=== PATIENT | female | born 1990 | race Caucasian/White ===

== ENCOUNTER 2017-07-07 11:34 | Emergency (ER) | payer OTHER ==
[2017-07-07 12:02] VITALS: BP 113/80
--- NOTE | 2017-07-07 12:29 | EDM.PDOC ---
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 WKS PREG/BLEEDING Time Seen by Provider: 07/07/17 12:10 Source of Information: Reports: Patient, Family (), Provider (Dr. Sinclair), RN Notes Reviewed History Limitations: Reports: No Limitations - History of Present Illness INITIAL COMMENTS - FREE TEXT/NARRATIVE: The patient states that she and her are trying to get . Her LMP was 05/27/2017. She was planning on taking hormonal treatment, therefore had a baseline quantitative hCG checked on 06/23/2017. It was slightly elevated at 17. It was up to 52 on 06/25/2017, and 201 on 07/02/2017. It dropped down to 176 yesterday, 07/06/2017, and a pelvic ultrasound yesterday did not find any tissue, anywhere. The patient states that she developed severe cramps and low back ache 3 days ago , lasting only about one hour, with mild cramps since then. This morning she had a small amount of vaginal bleeding when she wiped. The patient is . Her Conservation Enforcement Officer is Dr. Sinclair. She states that she tried to reach him this morning, without success, therefore came to the ED. The patient's PCP is Malika Merlos. 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: : 2 Para: 1 Musculoskeletal History: Reports: Fracture (right wrist) - Past Surgical History HEENT Surgical History: Reports: Oral Surgery ([place] teeth extraction), Tonsillectomy Neurological Surgical History: Reports: Other (See Below) (Left ankle surgery) Social & Family History - Family History Family Medical History: Noncontributory - Tobacco Use Smoking Status *Q: Never Smoker Second Hand Smoke Exposure: No - Caffeine Use Caffeine Use: Reports: None - Alcohol Use Alcohol Use History: No Days Per Week of Alcohol Use: 0 Number of Drinks Per Day: 0 Total Drinks Per Week: 0 - Recreational Drug Use Recreational Drug Use: No - Living Situation & Occupation Living situation: Reports: , with Spouse, with Family (Daughter) Occupation: Unemployed ED ROS GENERAL - Review of Systems Review Of Systems: See Below Constitutional: Reports: No Symptoms HEENT: Reports: No Symptoms Respiratory: Reports: Cough Cardiovascular: Reports: No Symptoms Endocrine: Reports: No Symptoms GI/Abdominal: Reports: No Symptoms : Reports: No Symptoms Musculoskeletal: Reports: No Symptoms Skin: Reports: No Symptoms Neurological: Reports: No Symptoms Psychiatric: Reports: No Symptoms Hematologic/Lymphatic: Reports: No Symptoms Immunologic: Reports: No Symptoms ED EXAM - Physical Exam Exam: See Below Exam Limited By: No Limitations General Appearance: Alert, WD/WN, No Apparent Distress Eye Exam: Bilateral Eye: Normal Inspection Ears: Normal External Exam, Hearing Grossly Normal Nose: Normal Inspection, No Blood Throat/Mouth: Normal Inspection, Normal Lips, Normal Voice, No Airway Compromise Head: Atraumatic, Normocephalic Neck: Normal Inspection, Full Range of Motion Respiratory/Chest: No Respiratory Distress, Lungs Clear, Normal Breath Sounds, No Accessory Muscle Use Cardiovascular: Normal Peripheral Pulses, Regular Rate, Rhythm, No Gallop, No JVD, No Murmur, No Rub GI/Abdominal Exam: Normal Bowel Sounds, Soft, Non-Tender, No Organomegaly, No Distention, No Abnormal Bruit, No Mass Rectal Exam: Deferred Back Exam: Normal Inspection, Full Range of Motion, NT Extremities: Normal Inspection, Normal Range of Motion, No Pedal Edema, Normal Capillary Refill Neurological: Alert, Oriented, Normal Cognition, No Motor/Sensory Deficits Psychiatric: Normal Affect Skin Exam: Warm, Dry, Intact, Normal Color, No Rash Lymphatic: No Adenopathy Course - Vital Signs Last Recorded V/S: Last Vital Signs Temp 36.5 C 07/07/17 12:02 Pulse 98 07/07/17 12:02 Resp 16 07/07/17 12:02 BP 113/80 07/07/17 12:02 Pulse Ox 98 07/07/17 12:02 - Orders/Labs/Meds Labs: Laboratory Tests 07/07/17 Range/Units 12:35 HCG, Quant 95.0 mIU/mL - Re-Assessments/Exams Free Text/Narrative Re-Assessment/Exam: 07/07/17 12:[address] Sinclair at 12:23. He agreed that the patient appears to be experiencing a spontaneous . He recommended we repeat a quantitative hCG, then discharge her home. Since he performed a pelvic examination on her yesterday, he recommend I not repeat one today. He stated that she was nontender to palpation of her abdomen and pelvis on examination yesterday, as she is today. He recommended she take Tylenol for cramping, not ibuprofen. The patient is already scheduled for repeat quantitative hCG this coming , . 07/07/17 13:23 The quantitative hCG has returned at 95, down from 176 yesterday. Clinically, the patient is experiencing a spontaneous . I advised her that she should expect some cramping and bleeding for the next 5-7 days, not significantly different from a regular menstrual period. As above, Dr. Sinclair has recommended she take Tylenol, not ibuprofen, and he advised that she obtain a previously scheduled quantitative hCG on , 07/09/2017. Departure - Departure Time of Disposition: 13:24 Disposition: Home, Self-Care 01 Condition: Good Clinical Impression: Spontaneous - Discharge Information Instructions: Miscarriage Referrals: Zev Sinclair MD [Physician] - Forms: ED Department Discharge Additional Instructions: You were seen in the emergency room for pelvic cramps and a small amount of vaginal bleeding. Workup in the ER included a quantitative hCG, which returned at 95, down from 176 yesterday and 201 on 07/02/2017. Your history and quantitative hCG indicate that you are experiencing a miscarriage. You should expect to have some cramping and bleeding over the next 5-7 days, not unlike a regular menstrual period. Dr. Sinclair recommends that you take hccz-lem-cagbihy Tylenol for her discomfort, not ibuprofen. He recommends that you obtain a previously scheduled quantitative hCG this coming , 07/09/2017. If any other problems, please do not hesitate to return to the ER.
== END 2017-07-07 13:35 | disposition home or self-care (01) ==
LOC: JD.ED 11:34
DX: O03.9 Complete or unspecified spontaneous abortion without complication (principal); Z98.890 Other specified postprocedural states; Z79.899 Other long term (current) drug therapy
CPT/HCPCS: 36415; 84702; 99283; 99284

== ENCOUNTER 2018-08-09 06:53 | Inpatient (IN) | payer OTHER ==
--- NOTE | 2018-08-09 07:28 | PCM.HP ---
H&P History of Present Illness - General Date of Service: 08/09/18 Admit Problem/Dx: Induction Source of Information: Patient, Old Records History Limitations: Reports: No Limitations - History of Present Illness Initial Comments - Free Text/Narative: "Barb" is a 27 YO white female who presents today at 39-3/7 wks gestation (by LMP, confirmed by [facility] 01/11/18) for an elective induction. On exam , patient was found to be 2 cm, 70% effaced, at -3 station, cervix posterior and firm. Denies blurred vision, VANESSA, LE edema, N/V, chest pain, cough, or dyspnea. Patient has a h/o depression and anxiety, EPDS completed 07/22, no suicidal/ homicidal thoughts or ideations. Patient blood type is A NEG, and due to partner's blood type also being Rh negative has denied Rhogam throughout her pregnancies. GBS NEG. Rubella immune, RPR/HBsAg/HIV nonreactive. Tdap given 05/24/18. Denies h/o MRSA or travel to Zika- infested areas. Patient has expressed interest in epidural for pain management. Plans to breastfeed. 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 scoliosis Psychiatric History: Reports: Anxiety, Depression - Past Surgical History HEENT Surgical History: Reports: Oral Surgery ([place] teeth extraction), Tonsillectomy Neurological Surgical History: Reports: Other (See Below) (Left ankle surgery) Musculoskeletal Surgical History: Reports: Other (See Below) Other Musculoskeletal Surgeries/Procedures:: L ankle repair per pt Social & Family History - Family History Family Medical History: Noncontributory Cardiac: Reports: Hypertension (Mother, Father, MGM) - Caffeine Use Caffeine Use: Reports: None - Living Situation & Occupation Living situation: Reports: , with Spouse, with Family (Daughter) Occupation: Unemployed H&P Review of Systems - Review of Systems: Review Of Systems: ROS reveals no pertinent complaints other than HPI. Exam - Exam Exam: See Below - Exam General: Alert, Oriented, 4 HEENT: Conjunctiva Clear, Mucosa Moist & [place], Nares Patent, Pupils Equal Lungs: Clear to Auscultation, Normal Respiratory Effort Cardiovascular: Regular Rate, Regular Rhythm Extremities: Normal Inspection, Normal Range of Motion, Non-Tender, No Pedal Edema, Normal Capillary Refill Skin: Warm, Dry, Intact Neuro Extensive - Mental Status: Alert, Oriented x3, Normal Mood/Affect, Normal Cognition Psychiatric: Alert, Normal Affect, Normal Mood - Problem List (1) with 39 completed weeks gestation SNOMED Code(s): 03491376 ICD Code: Z3A.39 - 39 WEEKS GESTATION OF Status: Acute Current Visit: Yes (2) Rh negative status during SNOMED Code(s): 183642709 ICD Code: O09.899 - SUPERVISION OF OTHER HIGH RISK PREGNANCIES, UNSP TRIMESTER; Z67.91 - UNSPECIFIED BLOOD TYPE, RH NEGATIVE Status: Acute Current Visit: Yes Problem List Initiated/Reviewed/Updated: Yes Assessment/Plan Comment:: ASSESSMENT Patient appears in good health on exam, with no current complaints. 1. 39-3/7 weeks gestation 2. Elective induction 3. Patient plans to breastfeed PLAN 1. Continue with induction 2. Support decision to breastfeed
[2018-08-09] MEDS ORDERED: Sodium Chloride 0.9% 10 ML Syringe FLUSH PRN (07:33)
[2018-08-09] MEDS ORDERED: Nalbuphine 20 MG/ML 1 ML Syringe IVPUSH PRN (07:33)
[2018-08-09] MEDS ORDERED: Ondansetron 4 MG/2 ML SDV IVPUSH PRN (07:33)
[2018-08-09] MEDS ORDERED: Oxytocin/Lactated Ringers 10 UNIT/1,000 ML BAG IV SCH (07:45)
[2018-08-09] MEDS: Lactated Ringers 1,000 ML IV SCH ×5 (08:40→16:15)
[2018-08-09] MEDS ORDERED: ePHEDrine 50 MG/ML SDV IVPUSH PRN (09:28)
[2018-08-09] MEDS ORDERED: fentaNYL 100 MCG/2 ML SDV EPIDUR PRN (09:28)
[2018-08-09] MEDS ORDERED: diphenhydrAMINE 50 MG/ML SDV IVPUSH PRN (09:28)
[2018-08-09] MEDS ORDERED: Bupivacaine/fentaNYL/NS 100 ML Bag EPIDUR SCH (09:30)
--- NOTE | 2018-08-09 10:54 | PCM.PREANE ---
Preanesthetic Assessment - Procedure Proposed Procedure: dami - Anesthesia/Transfusion/Family Hx Anesthesia History: Prior Anesthesia Without Reaction Family History of Anesthesia Reaction: No Transfusion History: No Prior Transfusion(s) - Review of Systems General: No Symptoms Pulmonary: No Symptoms Cardiovascular: No Symptoms Gastrointestinal: No Symptoms Neurological: No Symptoms Other: Reports: Depression, Anxiety - Physical Assessment O2 Sat by Pulse Oximetry: 98 Respiratory Rate: 18 Vital Signs: Last Vital Signs Temp 97.6 F 08/09/18 08:57 Pulse 84 08/09/18 08:57 Resp 18 08/09/18 08:57 BP 118/71 08/09/18 08:57 Pulse Ox 98 08/09/18 08:57 Height: 5 ft 3 in Weight: 79.152 kg ASA Class: 2 Mental Status: Alert & Oriented x3 Airway Class: Mallampati = 1 Dentition: Reports: Normal Dentition Thyro-Mental Finger Breadths: 3 Mouth Opening Finger Breadths: 3 ROM/Head Extension: Full Lungs: Clear to Auscultation, Normal Respiratory Effort Cardiovascular: Regular Rate, Regular Rhythm - Lab Values: Laboratory Last Values WBC 6.78 K/mm3 (3.98-10.04) 08/09/18 08:15 RBC 3.74 M/mm3 (3.98-5.22) L 08/09/18 08:15 Hgb 12.4 gm/L (11.2-15.7) 08/09/18 08:15 Hct 36.8 % (34.1-44.9) 08/09/18 08:15 MCV 98.4 fl (79.4-94.8) H 08/09/18 08:15 MCH 33.2 pg (25.6-32.2) H 08/09/18 08:15 MCHC 33.7 g/dl (32.2-35.5) 08/09/18 08:15 RDW Std Deviation 47.8 fL (36.4-46.3) H 08/09/18 08:15 Plt Count 198 K/mm3 (182-369) 08/09/18 08:15 MPV 9.5 fl (9.4-12.3) 08/09/18 08:15 Neut % (Auto) 54.8 % (34.0-71.1) 08/09/18 08:15 Lymph % (Auto) 27.0 % (19.3-51.7) 08/09/18 08:15 Curry % (Auto) 16.2 % (4.7-12.5) H 08/09/18 08:15 Eos % (Auto) 1.5 (0.7-5.8) 08/09/18 08:15 Baso % (Auto) 0.1 % (0.1-1.2) 08/09/18 08:15 Neut # (Auto) 3.71 K/mm3 (1.56-6.13) 08/09/18 08:15 Lymph # (Auto) 1.83 K/mm3 (1.18-3.74) 08/09/18 08:15 Curry # (Auto) 1.10 K/mm3 (0.24-0.36) H 08/09/18 08:15 Eos # (Auto) 0.10 K/mm3 (0.04-0.36) 08/09/18 08:15 Baso # (Auto) 0.01 K/mm3 (0.01-0.08) 08/09/18 08:15 Manual Slide Review Normal smear 08/09/18 08:15 RPR Non-reactive (NONREACTIVE) 08/09/18 08:15 - Allergies Allergies/Adverse Reactions: Allergies Allergy/AdvReac Type Severity Reaction Status Date / Time No Known Allergies Allergy Verified 08/09/18 08:31 - Blood Blood Available: No - Acknowledgements Anesthesia Type Planned: Epidural Pt an Appropriate Candidate for the Planned Anesthesia: Yes Alternatives and Risks of Anesthesia Discussed w Pt/Guardian: Yes Pt/Guardian Understands and Agrees with Anesthesia Plan: Yes PreAnesthesia Questionnaire HEENT History: Reports: None Cardiovascular History: Reports: None Respiratory History: Reports: Other (See Below) Other Respiratory History: 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 plus years Gastrointestinal History: Reports: GERD (with preg- occasional without preg) Genitourinary History: Reports: UTI, Recurrent 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 scoliosis Psychiatric History: Reports: Anxiety, Depression Hematologic History: Reports: Anemia Oncologic (Cancer) History: Reports: None - Past Surgical History HEENT Surgical History: Reports: Oral Surgery ([place] teeth extraction), Tonsillectomy Neurological Surgical History: Reports: Other (See Below) (Left ankle surgery) Musculoskeletal Surgical History: Reports: Other (See Below) Other Musculoskeletal Surgeries/Procedures:: L ankle repair per pt - History Comment History Comment: complains of chronic back pain since grade 6 due to scoliosis per patient. Lower t spine through l/s area. - SUBSTANCE USE Smoking Status *Q: Never Smoker Tobacco Use Within Last Twelve Months: No Second Hand Smoke Exposure: No Days Per Week of Alcohol Use: 0 Recreational Drug Use History: No - HOME MEDS Home Medications: Home Meds Cholecalciferol (Vitamin D3) [Vitamin D3] 5,000 unit PO DAILY 08/09/18 [History] Iron,Carbonyl/Ascorbic Acid [Iron 100-Vitamin C Tablet] 1 each PO DAILY [History] Loratadine [Claritin] 10 mg PO DAILY PRN 08/09/18 [History] Pnv No.122/Iron/Folic Acid [ Multi Tablet] 1 each PO DAILY 08/09/18 [ History] Ranitidine [Zantac] 150 mg PO DAILY PRN 08/09/18 [History] - CURRENT (IN HOUSE) MEDS Current Meds: Current Medications Diphenhydramine HCl (Benadryl) 25 mg IVPUSH Q6H PRN PRN Reason: pruritis Ephedrine Sulfate (Ephedrine Sulfate) 5 mg IVPUSH ASDIRECTED PRN PRN Reason: Hypotension Fentanyl (Sublimaze) 100 mcg EPIDUR Q3H PRN PRN Reason: Pain Fentanyl/Bupivacaine HCl (Fentanyl/Bupivacaine/Ns 2 Mcg-0.125% 100 Ml) 100 ml EPIDUR ASDIRECTED JEVON Lactated Ringer's (Ringers, Lactated) 1,000 mls @ 100 mls/hr IV ASDIRECTED JEVON Last Admin: 08/09/18 08:40 Dose: 100 mls/hr Oxytocin/Lactated Ringer's (Pitocin In Lr 10 Units/1,000 Ml) 10 unit in 1,000 mls @ 12 mls/hr IV TITRATE JEVON; Protocol Last Titration: 08/09/18 10:32 Dose: 12 munits/min, 72 mls/hr Lidocaine HCl (Xylocaine 1%) 10 ml INJECT ONETIME ONE Stop: 08/09/18 12:01 Nalbuphine HCl (Nubain) 10 mg IVPUSH Q2H PRN PRN Reason: pain Ondansetron HCl (Zofran) 4 mg IVPUSH Q4H PRN PRN Reason: Nausea/Vomiting Sodium Chloride (Saline Flush) 10 ml FLUSH ASDIRECTED PRN PRN Reason: Keep Vein Open
[2018-08-09] MEDS ORDERED: Lidocaine 1% 50 ML MDV INJECT ONE (12:00)
[2018-08-09] MEDS ORDERED: Calcium Carbonate 500 MG Tab.Chew PO PRN (15:06)
--- NOTE | 2018-08-09 20:14 | PCM.SN ---
- Free Text/Narrative Note: Shakira Is a 27-year-old multigravida white female is admitted on 08/09/2018 for elective induction of labor at 39-3/7 weeks gestational age. She was given Pitocin initially followed by artificial rupture membranes. She progressed well throughout the labor pattern. She had some mild increased vaginal bleeding at one point but this resolved. The patient had an epidural placed for labor and analgesia. heart tones remained reassuring throughout the labor course. She achieved complete cervical dilation by approximately 1900 hrs. She pushed for a short period of time and delivered a viable, gama, male with Apgars of 8 and 9, a length of 20.0 inches, a weight of 3120 (6 pounds 14.1 ounces) in an occiput anterior position. The baby's nose and mouth bulb suctioned after the baby was placed on mom's abdomen. The cord was clamped 2 after an pulsate for approximately 1 minute. It was cut by the baby's father. Pitocin was started IV after delivery per protocol. Patient had a first-degree perineal laceration which was repaired with 2 figure- of-eight sutures of 3-0 Monocryl. Epidural was used for the repair anesthesia. Blood loss was 200 mL. Placenta delivered in a [place] presentation, appeared intact and complete and was discarded per patient desire. Blood loss was 200 mL. Patient plans to breast-feed. Condition: Good.
[2018-08-09] MEDS ORDERED: Witch Hazel Medicated Pads 100/Jar TOP PRN (20:40)
[2018-08-09] MEDS ORDERED: Docusate Sodium 100 MG Cap PO PRN (20:40)
[2018-08-09] MEDS ORDERED: Lanolin 100% Cream 7 GM Tube TOP PRN (20:40)
[2018-08-09] MEDS: Benzocaine/Menthol 20%-0.5% Spray 56 GM Canister TOP PRN (21:48)
[2018-08-09] MEDS: Ibuprofen 600 MG Tab PO PRN (21:48)
[2018-08-09] MEDS ORDERED: Lidocaine 1.5% with EPINEPHrine 1:200,000 5 ML Amp ONE (22:00)
[2018-08-09] MEDS ORDERED: Bupivacaine 0.25% 10 ML SDV ONE (22:00)
[2018-08-10] MEDS: Acetaminophen 325 MG Tab PO PRN ×3 (02:40→16:49)
[2018-08-10] MEDS: Ibuprofen 600 MG Tab PO PRN ×5 (04:19→22:15)
[2018-08-10] MEDS ORDERED: Prenatal Multivitamin with Calcium/Folic Acid/Iron Tab PO SCH (09:00)
--- NOTE | 2018-08-10 09:32 | PCM48HPAN ---
Post Anesthesia Note - EVALUATION WITHIN 48HRS OF ANESTHETIC Vital Signs in Normal Range: Yes Patient Participated in Evaluation: Yes Respiratory Function Stable: Yes Airway Patent: Yes Cardiovascular Function Stable: Yes Hydration Status Stable: Yes Pain Control Satisfactory: Yes Nausea and Vomiting Control Satisfactory: Yes Mental Status Recovered: Yes Pulse Rate: 85 Resp Rate: 18 Temperature: 36.9 C Blood Pressure: 114/67 - COMMENTS/OBSERVATIONS Free Text/Narrative:: no anesthesia complications noted
[2018-08-10] MEDS ORDERED: Citalopram 20 MG Tab PO SCH (21:00)
--- NOTE | 2018-08-11 05:52 | PCM.DCSUM1 ---
Discharge Summary - Hospital Course Free Text/Narrative:: Shakira Is a 27-year-old multigravida white female is admitted on 08/09/2018 for elective induction of labor at 39-3/7 weeks gestational age. She was given Pitocin initially followed by artificial rupture membranes. She progressed well throughout the labor pattern. She had some mild increased vaginal bleeding at one point but this resolved. The patient had an epidural placed for labor and analgesia. heart tones remained reassuring throughout the labor course. She achieved complete cervical dilation by approximately 1900 hrs. She pushed for a short period of time and delivered a viable, gama, male infant with Apgars of 8 and 9, a length of 20.0 inches, a weight of 3120 (6 pounds 14.1 ounces) in an occiput anterior position. The baby's nose and mouth bulb suctioned after the baby was placed on mom's abdomen. The cord was clamped 2 after an pulsate for approximately 1 minute. It was cut by the baby's father. Pitocin was started IV after delivery per protocol. Patient had a first-degree perineal laceration which was repaired with 2 figure- of-eight sutures of 3-0 Monocryl. Epidural was used for the repair anesthesia. Blood loss was 200 mL. Placenta delivered in a Galaviz presentation, appeared intact and complete and was discarded per patient desire. Blood loss was 200 mL. Patient plans to breast-feed. patient has done relatively well. She is nursing without problems and has minimal lochia. She is ambulating well and voiding without concerns. She has had some blues and reports that with her last and . She was on and an SSRI. She had good results with this and wishes to start this again. She is aware of the potential risks associated with SSRI usage and nursing. She was given her first dose of Celexa 10 mg on her first day. Diagnosis: Stroke: No - Discharge Data Discharge Date: 08/11/18 Discharge Disposition: Home, Self-Care 01 Condition: Good - Patient Instructions Diet: Regular Diet as Tolerated (Nursing diet with increase calories and calcium is recommended) Activity: As Tolerated (No intercourse or tampons until bleeding resolves) Driving: May Drive Today Showering/Bathing: May Shower (May take a bath) Notify Provider of: Fever, Increased Pain, Swelling and Redness, Nausea and/or Vomiting - Discharge Plan *PRESCRIPTION DRUG MONITORING PROGRAM REVIEWED*: No *COPY OF PRESCRIPTION DRUG MONITORING REPORT IN PATIENT COLLIN: No Home Medications: Home Meds Cholecalciferol (Vitamin D3) [Vitamin D3] 5,000 unit PO DAILY 08/09/18 [History] Iron,Carbonyl/Ascorbic Acid [Iron 100-Vitamin C Tablet] 1 each PO DAILY [History] Loratadine [Claritin] 10 mg PO DAILY PRN 08/09/18 [History] Pnv No.122/Iron/Folic Acid [ Multi Tablet] 1 each PO DAILY 08/09/18 [ History] Acetaminophen [Tylenol] 650 mg PO Q4H PRN tablet 08/11/18 [Rx] Citalopram [Citalopram HBr] 20 mg PO DAILY tablet 08/11/18 [Rx] Ibuprofen [Motrin] 600 mg PO Q4H PRN tablet 08/11/18 [Rx] Referrals: Zev Sinclair MD [Primary Care Provider] - (Return to clinic2 weeks'Dr. Sinclair.) - Discharge Summary/Plan Comment DC Time >30 min.: No Discharge Summary/Plan Comment: Discharge instructions: 1. Discharge home 2. Diet, activity and follow-up discussed with patient. Recommend nursing diet with increased calories and calcium. 3. Precautions given concern increased pain, bleeding, temperature, signs/ symptoms of DVT/PE. 4. Medications per home medication was printed, discussed with and given to the patient. 5. Return to clinic-Dr. Sinclair-[facility] in 2 weeks. Diagnosis: Term -delivered Condition: Good - Patient Data Vitals - Most Recent: Last Vital Signs Temp 37.1 C 08/11/18 02:54 Pulse 81 08/11/18 02:54 Resp 20 08/11/18 02:54 BP 124/72 08/11/18 02:54 Pulse Ox 97 08/11/18 02:54 Weight - Most Recent: 79.152 kg I&O - Last 24 hours: Intake & Output 08/10/18 08/10/18 08/11/18 14:59 22:59 06:59 Intake Total 360 320 Balance 360 320 Lab Results - Last 24 hrs: Laboratory Results - last 24 hr 08/10/18 Range/Units 06:36 WBC 9.72 (3.98-10.04) K/mm3 RBC 3.03 L (3.98-5.22) M/mm3 Hgb 10.0 L (11.2-15.7) gm/L Hct 30.0 L (34.1-44.9) % MCV 99.0 H (79.4-94.8) fl MCH 33.0 H (25.6-32.2) pg MCHC 33.3 (32.2-35.5) g/dl RDW Std Deviation 47.4 H (36.4-46.3) fL Plt Count 159 L (182-369) K/mm3 MPV 9.6 (9.4-12.3) fl Med Orders - Current: Current Medications Acetaminophen (Tylenol) 650 mg PO Q4H PRN PRN Reason: mild pain or fever Last Admin: 08/10/18 16:49 Dose: 650 mg Benzocaine/Menthol (Dermoplast Pain Relief Mobile) 0 gm TOP ASDIRECTED PRN PRN Reason: Perineal Comfort Measure Last Admin: 08/09/18 21:48 Dose: 1 applic Citalopram Hydrobromide (Celexa) 20 mg PO DAILY [facility] Last Admin: 08/10/18 21:53 Dose: 20 mg Docusate Sodium (Colace) 100 mg PO BID PRN PRN Reason: Constipation Last Admin: 08/10/18 08:40 Dose: 100 mg Emollient Ointment (Lansinoh Hpa) 0 gm TOP ASDIRECTED PRN PRN Reason: Sore Nipples Ibuprofen (Motrin) 600 mg PO Q4H PRN PRN Reason: Mild pain or fever Last Admin: 08/10/18 22:15 Dose: 600 mg Prenat Multivit/Zavala/Iron/Folic Ac ( Plus Iron) 1 each PO DAILY [facility] Last Admin: 08/10/18 08:40 Dose: 1 each Witch Bruna (Tucks) 1 pad TOP ASDIRECTED PRN PRN Reason: Hemorrhoid pain Last Admin: 08/09/18 21:48 Dose: 1 applic Discontinued Medications Bupivacaine HCl (Sensorcaine-Mpf 0.25%) 20 ml .ROUTE .STK-MED ONE Stop: 08/09/18 22:01 Calcium Carbonate/Glycine (Tums) 1,000 mg PO Q2HR PRN PRN Reason: Indigestion Last Admin: 08/09/18 15:34 Dose: 1,000 mg Diphenhydramine HCl (Benadryl) 25 mg IVPUSH Q6H PRN PRN Reason: pruritis Ephedrine Sulfate (Ephedrine Sulfate) 5 mg IVPUSH ASDIRECTED PRN PRN Reason: Hypotension Fentanyl (Sublimaze) 100 mcg EPIDUR Q3H PRN PRN Reason: Pain Last Admin: 08/09/18 14:01 Dose: 100 mcg Fentanyl/Bupivacaine HCl (Fentanyl/Bupivacaine/Ns 2 Mcg-0.125% 100 Ml) 100 ml EPIDUR ASDIRECTED JEVON Last Admin: 08/09/18 14:01 Dose: 100 ml Lactated Ringer's (Ringers, Lactated) 1,000 mls @ 100 mls/hr IV ASDIRECTED JEVON Last Admin: 08/09/18 16:15 Dose: 100 mls/hr Oxytocin/Lactated Ringer's (Pitocin In Lr 10 Units/1,000 Ml) 10 unit in 1,000 mls @ 12 mls/hr IV TITRATE JEVON; Protocol Last Titration: 08/09/18 18:38 Dose: 10 munits/min, 60 mls/hr Lidocaine HCl (Xylocaine 1%) 10 ml INJECT ONETIME ONE Stop: 08/09/18 12:01 Last Admin: 08/10/18 02:44 Dose: Not Given Lidocaine/Epinephrine (Xylocaine-Mpf 1.5% W/Epinephrine 1:200,000) 5 ml .ROUTE .STK-MED ONE Stop: 08/09/18 22:01 Nalbuphine HCl (Nubain) 10 mg IVPUSH Q2H PRN PRN Reason: pain Ondansetron HCl (Zofran) 4 mg IVPUSH Q4H PRN PRN Reason: Nausea/Vomiting Sodium Chloride (Saline Flush) 10 ml FLUSH ASDIRECTED PRN PRN Reason: Keep Vein Open
[2018-08-11] MEDS: Ibuprofen 600 MG Tab PO PRN (06:47)
--- NOTE | 2018-08-11 08:06 | PCM.SN ---
- Free Text/Narrative Note: Shakira ("Barb") is a 27 YO 27 YO G3 now P2012 white female who vaginally delivered a healthy, gama, male on 08/09/18 at 19:43 hrs after elective induction of labor at 39-3/7 wks gestation. Patient had a minimal 2nd degree perineal laceration which was repaired with suture. SUBJECTIVE Patient endorses feelings of sadness, teariness, anxiety and anhedonia, with an EDPS of 19. Otherwise denies cough, chest pain, dyspnea, SOB, fevers/chills, excessive bleeding/discharge, Pain/swelling of LE, dizziness, blurred vision, VANESSA. OBJECTIVE Hct: 30% Hgb: 10.0 g/L VS T: 37.1 HR: 81 BP: 124/72 RR: 20 O2: 97% RA ASSESSMENT Barb appears to be in good health physically. Discussed blues/ depression with the patient, plans for medication and monitoring/follow-up of her depressive symptoms. She reports she has takes escitalopram in the past for similar symptoms with good success. Also discussed patient's plans to breastfeed and the resources available to her through the hospital, including consultants. Patient seemed interested in their services. PLAN 1. Begin Escitalopram (10mg) PO daily 2. Plan to follow-up in clinic with Dr. Sinclair or Dr. Chua in 1 week for depressive symptoms 3. Follow up in clinic in 2 weeks for regular visit 4. Continue to support decision 5. Home today
[2018-08-11] MEDS: Benzocaine/Menthol 20%-0.5% Spray 56 GM Canister TOP PRN (10:01)
[2018-08-11 11:04] VITALS: BP 118/72
== END 2018-08-11 10:15 | disposition home or self-care (01) | DRG 775 ==
LOC: JD.OB 06:53 → OBSVTOIN 19:43
PROVIDERS: ADMIT Obstetrics & Gynecology; ATTEND Obstetrics & Gynecology
PROC: 0HQ9XZZ Repair Perineum Skin, External Approach (ICD-10-PCS; principal; 2018-08-09)
PROC: 10907ZC Drainage of Amniotic Fluid, Therapeutic from Products of Conception, Via Natural or Artificial Opening (ICD-10-PCS; principal; 2018-08-09)
PROC: 10E0XZZ Delivery of Products of Conception, External Approach (ICD-10-PCS; principal; 2018-08-09)
PROC: 3E033VJ Introduction of Other Hormone into Peripheral Vein, Percutaneous Approach (ICD-10-PCS; principal; 2018-08-09)
PROC: 3E0R3BZ Introduction of Anesthetic Agent into Spinal Canal, Percutaneous Approach (ICD-10-PCS; 2018-08-09)
PROC: 00HU33Z Insertion of Infusion Device into Spinal Canal, Percutaneous Approach (ICD-10-PCS; 2018-08-09)
DX: O99.344 Other mental disorders complicating childbirth (principal); Z37.0 Single live birth; O70.0 First degree perineal laceration during delivery; F32.9 Major depressive disorder, single episode, unspecified; Z3A.39 39 weeks gestation of pregnancy; F41.9 Anxiety disorder, unspecified; Z87.440 Personal history of urinary (tract) infections
CPT/HCPCS: 36415; 51702; 59025; 59300; 59409; 85025; 85027; 86592; A9270-GY; J2590; J3010; J3490; J7120

== ENCOUNTER 2020-06-29 09:54 | Emergency (ER) | payer BC ==
[2020-06-29 10:07] VITALS: PULSE 89
[2020-06-29 10:16] VITALS: BP 117/75
--- NOTE | 2020-06-29 10:48 | EDM.PDOC ---
ED HPI GENERAL MEDICAL PROBLEM - General Chief Complaint: BUSINESS SEGMENT MANAGER Problem Stated Complaint: 6 WEEKS PREG CRAMPING AND BLEEDING Time Seen by Provider: 06/29/20 10:47 - History of Present Illness INITIAL COMMENTS - FREE TEXT/NARRATIVE: 29-year-old female presents the emergency room with cramping spotting and being 6 weeks . Patient is a 4 para 2 1 miscarriage. The #2 was a miscarriage. The patient awoke this morning and voided and noted some blood in the toilet after she voided. She has had some cramping intermittently. She may have some urinary frequency as well but she attributes this to being . Denies fevers or chills no nausea no vomiting. The patient did phone Dr. Chua's office and nursing advised her to come to the emergency room. The patient believes her blood type is A- and believes her 's blood type is also a-. - Related Data Allergies Allergy/AdvReac Type Severity Reaction Status Date / Time No Known Allergies Allergy Verified 08/09/18 08:31 Home Meds: Home Meds Cholecalciferol (Vitamin D3) [Vitamin D3] 5,000 unit PO DAILY 08/09/18 [History] Iron,Carbonyl/Ascorbic Acid [Iron 100-Vitamin C Tablet] 1 each PO DAILY 08/09/18 [History] No122/Iron/Folic Acid [ Multi Tablet] 1 each PO DAILY 08/09/18 [History] Acetaminophen [Tylenol] 650 mg PO Q4H PRN tablet 08/11/18 [Rx] Past Medical History HEENT History: Reports: None Cardiovascular History: Reports: None Respiratory History: Reports: Other (See Below) Other Respiratory History: 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 scoliosis Psychiatric History: Reports: Anxiety, Depression Hematologic History: Reports: Anemia Oncologic (Cancer) History: Reports: None - Past Surgical History HEENT Surgical History: Reports: Oral Surgery, Tonsillectomy Neurological Surgical History: Reports: Other (See Below) Musculoskeletal Surgical History: Reports: Other (See Below) Other Musculoskeletal Surgeries/Procedures:: L ankle repair per pt Dermatological Surgical History: Reports: None - History Comment History Comment: complains of chronic back pain since grade 6 due to scoliosis per patient. Lower t spine through l/s area. Social & Family History - Family History Family Medical History: Noncontributory Cardiac: Reports: Hypertension - Tobacco Use Smoking Status *Q: Unknown Ever Smoked - Caffeine Use Caffeine Use: Reports: None - Living Situation & Occupation Living situation: Reports: , with Spouse, with Family (Daughter) Occupation: Unemployed ED ROS GENERAL - Review of Systems Review Of Systems: See Below Constitutional: Reports: No Symptoms HEENT: Reports: No Symptoms Respiratory: Reports: No Symptoms Cardiovascular: Reports: No Symptoms GI/Abdominal: Reports: No Symptoms : Reports: Frequency Musculoskeletal: Reports: No Symptoms Skin: Reports: No Symptoms Neurological: Reports: No Symptoms ED EXAM - Physical Exam Exam: See Below Exam Limited By: No Limitations General Appearance: Alert, No Apparent Distress Head: Atraumatic, Normocephalic Neck: Normal Inspection, Supple, Non-Tender, Full Range of Motion. No: Lymphadenopathy (L), Lymphadenopathy (R) Respiratory/Chest: No Respiratory Distress, Lungs Clear, Normal Breath Sounds Cardiovascular: Regular Rate, Rhythm, No Edema, No Murmur GI/Abdominal Exam: Normal Bowel Sounds, Soft, Non-Tender (Female) Exam: Normal External Exam, Other (Old blood noted on the cervical eyes no dilation seen this is brown no red-maroon or purple blood seen no clots no tissue.). No: Cervical Dilatation Course - Vital Signs Last Recorded V/S: Last Vital Signs Temp 36.4 C 06/29/20 10:04 Pulse 89 06/29/20 10:04 Resp 16 06/29/20 10:04 BP 117/75 06/29/20 10:15 Pulse Ox 100 06/29/20 10:04 - Orders/Labs/Meds Labs: Laboratory Tests 06/29/20 06/29/20 06/29/20 Range/Units 11:00 11:00 11:00 WBC 6.68 (3.98-10.04) K/mm3 RBC 4.04 (3.98-5.22) M/mm3 Hgb 13.3 (11.2-15.7) gm/dl Hct 40.1 (34.1-44.9) % MCV 99.3 H (79.4-94.8) fl MCH 32.9 H (25.6-32.2) pg MCHC 33.2 (32.2-35.5) g/dl RDW Std Deviation 44.8 (36.4-46.3) fL Plt Count 260 (182-369) K/mm3 MPV 9.1 L (9.4-12.3) fl Neut % (Auto) 60.8 (34.0-71.1) % Lymph % (Auto) 27.5 (19.3-51.7) % Cass % (Auto) 9.4 (4.7-12.5) % Eos % (Auto) 1.9 (0.7-5.8) Baso % (Auto) 0.3 (0.1-1.2) % Neut # (Auto) 4.05 (1.56-6.13) K/mm3 Lymph # (Auto) 1.84 (1.18-3.74) K/mm3 Cass # (Auto) 0.63 H (0.24-0.36) K/mm3 Eos # (Auto) 0.13 (0.04-0.36) K/mm3 Baso # (Auto) 0.02 (0.01-0.08) K/mm3 HCG, Quant 34255.0 mIU/mL Urine Color (Yellow) Urine Appearance (Clear) Urine pH (5.0-8.0) Ur Specific [place] (1.005-1.030) Urine Protein (Negative) Urine Glucose (UA) (Negative) Urine Ketones (Negative) Urine Occult Blood (Negative) Urine Nitrite (Negative) Urine Bilirubin (Negative) Urine Urobilinogen (0.2-1.0) Ur Leukocyte Esterase (Negative) Blood Type A NEGATIVE Gel Antibody Screen Negative 06/29/20 Range/Units 13:10 WBC (3.98-10.04) K/mm3 RBC (3.98-5.22) M/mm3 Hgb (11.2-15.7) gm/dl Hct (34.1-44.9) % MCV (79.4-94.8) fl MCH (25.6-32.2) pg MCHC (32.2-35.5) g/dl RDW Std Deviation (36.4-46.3) fL Plt Count (182-369) K/mm3 MPV (9.4-12.3) fl Neut % (Auto) (34.0-71.1) % Lymph % (Auto) (19.3-51.7) % Cass % (Auto) (4.7-12.5) % Eos % (Auto) (0.7-5.8) Baso % (Auto) (0.1-1.2) % Neut # (Auto) (1.56-6.13) K/mm3 Lymph # (Auto) (1.18-3.74) K/mm3 Cass # (Auto) (0.24-0.36) K/mm3 Eos # (Auto) (0.04-0.36) K/mm3 Baso # (Auto) (0.01-0.08) K/mm3 HCG, Quant mIU/mL Urine Color Yellow (Yellow) Urine Appearance Clear (Clear) Urine pH 7.0 (5.0-8.0) Ur Specific [place] 1.025 (1.005-1.030) Urine Protein Negative (Negative) Urine Glucose (UA) Negative (Negative) Urine Ketones Trace H (Negative) Urine Occult Blood Negative (Negative) Urine Nitrite Negative (Negative) Urine Bilirubin Negative (Negative) Urine Urobilinogen 0.2 (0.2-1.0) Ur Leukocyte Esterase Negative (Negative) Blood Type Gel Antibody Screen - Re-Assessments/Exams Free Text/Narrative Re-Assessment/Exam: 06/29/20 13:07 Ultrasound shows a subchorionic hemorrhage minimal. Heart tones noted at 113 bpm. Unfortunately still awaiting urine. According to the patient she recently voided. Case was discussed with Dr. Sinclair on-call for Dr. Chua and the patient will follow up with Dr. Chua on Thursday. Given explicit instructions for no intercourse no strenuous activity no lifting over 5 pounds no strenuous housework. 06/29/20 13:57 Urinalysis is negative for any hint of an infection at this point. Departure - Departure Time of Disposition: 13:57 Disposition: Home, Self-Care 01 Clinical Impression: Subchorionic hemorrhage in first trimester - Discharge Information Referrals: Vidal Chua MD [Primary Care Provider] - Forms: ED Department Discharge Additional Instructions: Return to the emergency room with any questions problems or worsening symptoms. No strenuous activity no lifting over 5 pounds no intercourse until you have been cleared to do so by Dr. Chua. As we discussed minimal kitchen work and housework. And unfortunately no golf. Follow-up with Dr. Chua on Thursday. Push lots of fluids, non-caffeinated. Sepsis Event Note (ED) - Evaluation Sepsis Screening Result: No Definite Risk - Focused Exam Vital Signs: Vital Signs Temp Pulse Resp BP Pulse Ox 06/29/20 10:15 117/75 06/29/20 10:04 36.4 C 89 16 100
--- NOTE | 2020-06-29 12:53 | US ---
First trimester obstetrical ultrasound: Multiple real-time images were obtained transvaginally. Comparison: No previous study for current . Dates: LMP: LMP given as 05/10/20, DIONI 02/14/21, gestational age 7 weeks 1 day Current ultrasound: DIONI 02/17/21, gestational age 6 weeks 5 days Single intrauterine gestation is seen. Amniotic fluid volume is normal. Yolk sac and small pole are noted. Minimal subchorionic hemorrhage is noted. 2 small cysts are noted within the maternal left ovary with largest measuring 2.6 cm. Maternal right ovary appears normal. Measurements: [place]-rump length: 0.84 cm - 6 weeks 5 days Heart rate: 113 bpm Impression: 1. Single intrauterine gestation. Dates as noted above. 2. Minimal subchorionic hemorrhage. 3. Other findings as noted above believed to be incidental. Diagnostic code #2 This report was dictated in MDT
== END 2020-06-29 14:10 | disposition home or self-care (01) ==
LOC: JD.ED 09:54
DX: O20.8 Other hemorrhage in early pregnancy (principal); O99.89 Other specified diseases and conditions complicating pregnancy, childbirth and the puerperium; M41.9 Scoliosis, unspecified; Z3A.01 Less than 8 weeks gestation of pregnancy
CPT/HCPCS: 36415; 76817; 76817-26; 81003; 84702; 85025; 86850; 86900; 86901; 99282; 99284-25

== ENCOUNTER 2021-02-18 00:14 | Inpatient (IN) | payer BC ==
[~2021-02-18 00:14] MED LIST: Bupivacaine 0.25% 10 ML SDV ONE
[2021-02-18] MEDS ORDERED: Ondansetron 4 MG/2 ML SDV IVPUSH PRN (00:23)
[2021-02-18] MEDS ORDERED: Nalbuphine 10 MG/1 ML Vial IVPUSH PRN (00:23)
[2021-02-18] MEDS ORDERED: Sodium Chloride 0.9% 10 ML Syringe FLUSH PRN (00:23)
[2021-02-18] MEDS ORDERED: Calcium Carbonate 500 MG Tab.Chew PO PRN (00:23)
[2021-02-18] MEDS: Lactated Ringers 1,000 ML IV SCH ×2 (06:00→11:24)
[2021-02-18] MEDS: Oxytocin/Lactated Ringers 10 UNIT/1,000 ML BAG IV SCH ×2 (06:25→17:31)
--- NOTE | 2021-02-18 08:10 | PCM.LDHP ---
L&D History of Present Illness - General Date of Service: 02/18/21 Admit Problem/Dx: Patient Status Order with Admit Dx/Problem 02/18/21 00:23 Patient Status [ADT] Routine Admission Diagnosis/Problem Admission Diagnosis/Problem Source of Information: Patient History Limitations: Reports: No Limitations - History of Present Illness Introduction:: Shakira Em is a GBS - A- with negative antibody screen 30 year old x 2 female at 40-1 weeks gestation age (DIONI 02/17/21) by 11 week US and LMP who presents today for induction of labor. She denies regular contraction, vaginal bleeding or leaking of fluid. movement has been good. Present Illness Comments:: Shakira Em is a GBS - A- with negative antibody screen 30 year old x 2 female at 40-1 weeks gestation age (DIONI 02/17/21) by 11 week US and LMP who presents today for induction of labor. Patient has received [facility] care with Dr. Chua and denies any complications during her . Patient is A- and significant other is A-; she did not receive RhoGAM at 28 weeks. She received the Tdap vaccine on 12/31/20; declined flu vaccine administration. OBGYN History 12/29/15: of a female infant weighing 7 lbs 7 ounces at 39 weeks gestational age "Martha" 05/23/17: SAB 08/09/18: of a male infant weighing 6 lbs 14 ounces at 39-3 weeks gestational age "Skyler" G4: current labs: Blood type: A- Antibody screen: Negative Rubella status: immune Hepatitis B surface antigen: negative Hepatitis C: unknown RPR: negative HIV: negative Gonorrhea: Negative Chlamydia: negative Anatomy US: 10/02/20 Normal growth, VERONICA, placental position, anatomy One hour glucose tolerance test: 147 Three hour glucose tolerance test: 81 159 165 123 Second trimester hematocrit/hemoglobin: 12.0 Platelets: 229,000 GBS status: negative Weight gain during : 30.0 lbs - Related Data Allergies/Adverse Reactions: Allergies Allergy/AdvReac Type Severity Reaction Status Date / Time No Known Allergies Allergy Verified 08/09/18 08:31 Home Medications: Home Meds No122/Iron/Folic Acid [ Multi Tablet] 1 each PO DAILY 08/09/18 [History] Acetaminophen [Tylenol] 650 mg PO Q4H PRN tablet 08/11/18 [Rx] Ascorbic Acid [Vitamin C] 1,000 mg PO DAILY 02/17/21 [History] Calcium Carbonate [Tums] 500 mg PO Q2HR PRN 02/17/21 [History] Cholecalciferol (Vitamin D3) [Vitamin D3] 1,000 unit PO DAILY 02/17/21 [History] Omeprazole Magnesium [Prilosec Otc] 20 mg PO DAILY 02/17/21 [History] Past Medical History HEENT History: Reports: Other (See Below) Other HEENT History: wears glasses and contacts Cardiovascular History: Reports: None Respiratory History: Reports: Other (See Below) Other Respiratory History: 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 plus years Gastrointestinal History: Reports: GERD, Hemorrhoids Other Gastrointestinal History: prior hx of constipation, none presently Genitourinary History: Reports: UTI, Recurrent, Other (See Below) Other Genitourinary History: No UTIs with this , hx freq uti's with prior pregnancies [employer]ING [employer] History: Reports: , Spontaneous Other OB/BYN History: colposcopy age 16, results normal Musculoskeletal History: Reports: Fracture Other Musculoskeletal History: Hx R wrist fx, hx scoliosis Neurological History: Reports: Migraines Other Neuro History: Hx migraine with aura, one recently, prior had been a long period of time without. Psychiatric History: Reports: Anxiety, Depression Other Psychiatric History: Pt expresses having severe anxiety, as well as some increased depression with this , as unable to be on antidepressant or antianxiety meds during . Denies any SI, denies any thoughts of self- harm or harm to others. Endocrine/Metabolic History: Reports: None Hematologic History: Reports: Anemia, Other (See Below) Other Hematologic History: on iron supplements Immunologic History: Reports: None Oncologic (Cancer) History: Reports: None Dermatologic History: Reports: None - Infectious Disease History Infectious Disease History: Reports: None - Past Surgical History HEENT Surgical History: Reports: Oral Surgery, Tonsillectomy Cardiovascular Surgical History: Reports: None Respiratory Surgical History: Reports: None GI Surgical History: Reports: None Female Surgical History: Reports: None Endocrine Surgical History: Reports: None Musculoskeletal Surgical History: Reports: Other (See Below) Other Musculoskeletal Surgeries/Procedures:: 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 Lower t spine through l/s area. Social & Family History - Family History Family Medical History: No Pertinent Family History Cardiac: Reports: Hypertension - Tobacco Use Tobacco Use Status *Q: Never Tobacco User Second Hand Smoke Exposure: No - Caffeine Use Caffeine Use: Reports: Soda Other Caffeine Use: every so often drinks a coke - Recreational Drug Use Recreational Drug Use: No - Living Situation & Occupation Living situation: Reports: , with Spouse, with Family (Daughter) Occupation: Unemployed H&P Review of Systems - Review of Systems: Review Of Systems: See Below General: Reports: No Symptoms HEENT: Reports: No Symptoms Pulmonary: Reports: No Symptoms Cardiovascular: Reports: No Symptoms Gastrointestinal: Reports: No Symptoms Genitourinary: Reports: No Symptoms Musculoskeletal: Reports: No Symptoms Skin: Reports: No Symptoms Psychiatric: Reports: No Symptoms Neurological: Reports: No Symptoms L&D Exam - Exam Exam: See Below - Vital Signs Vital Signs: Last Vital Signs Temp 98.3 F 02/18/21 05:53 Pulse 90 02/18/21 06:43 Resp 15 02/18/21 05:53 BP 109/67 02/18/21 06:43 Pulse Ox 98 02/18/21 05:53 Weight: 172 lb - OB Specific Contraction Intensity: Mild Movement: Active Heart Tones: Present - Exam General: Alert, Oriented HEENT: EOMI, Hearing Intact Lungs: Clear to Auscultation, Normal Respiratory Effort Cardiovascular: Regular Rate, Regular Rhythm GI/Abdominal Exam: Normal Bowel Sounds, Soft, Non-Tender Extremities: Normal Inspection, No Pedal Edema, Normal Capillary Refill Skin: Warm, Dry, Intact Psychiatric: Alert, Normal Affect, Normal Mood - Patient Data Lab Results Last 24 hrs: Laboratory Results - last 24 hr 02/18/21 02/18/21 02/18/21 Range/Units 05:00 05:10 05:10 WBC 6.61 (3.98-10.04) K/mm3 RBC 3.87 L (3.98-5.22) M/mm3 Hgb 12.5 (11.2-15.7) gm/dl Hct 38.2 (34.1-44.9) % MCV 98.7 H (79.4-94.8) fl MCH 32.3 H (25.6-32.2) pg MCHC 32.7 (32.2-35.5) g/dl RDW Std Deviation 48.2 H (36.4-46.3) fL Plt Count 187 (182-369) K/mm3 MPV 9.6 (9.4-12.3) fl Neut % (Auto) 46.3 (34.0-71.1) % Lymph % (Auto) 38.7 (19.3-51.7) % [place] % (Auto) 12.9 H (4.7-12.5) % Eos % (Auto) 1.4 (0.7-5.8) Baso % (Auto) 0.2 (0.1-1.2) % Neut # (Auto) 3.07 (1.56-6.13) K/mm3 Lymph # (Auto) 2.56 (1.18-3.74) K/mm3 [place] # (Auto) 0.85 H (0.24-0.36) K/mm3 Eos # (Auto) 0.09 (0.04-0.36) K/mm3 Baso # (Auto) 0.01 (0.01-0.08) K/mm3 Hepatitis C Antibody Negative (NEGATIVE) SARS-CoV-2 RNA (MARLI) Negative (NEGATIVE) Result Diagrams: 02/18/21 05:10 - Problem List (1) 40 weeks gestation of SNOMED Code(s): 79233380 ICD Code: Z3A.40 - 40 WEEKS GESTATION OF Status: Acute Current Visit: Yes (2) Encounter for induction of labor SNOMED Code(s): 541595310 ICD Code: Z34.90 - ENCNTR FOR SUPRVSN OF NORMAL , UNSP, UNSP TRIMESTER Status: Acute Current Visit: Yes (3) Rh negative status during SNOMED Code(s): 428576913 ICD Code: O09.899 - SUPERVISION OF OTHER HIGH RISK PREGNANCIES, UNSP TRIMESTER; Z67.91 - UNSPECIFIED BLOOD TYPE, RH NEGATIVE Status: Acute Current Visit: No Problem List Initiated/Reviewed/Updated: Yes Orders Last 24hrs: Active Orders 24 hr Category Date Time Status Patient Status [ADT] Routine ADT 02/18/21 00:23 Active Activity as Tolerated [RC] PFP Care 02/18/21 00:23 Active Communication Order [RC] ASDIRECTED Care 02/18/21 00:23 Active Heart Tones [RC] ASDIRECTED Care 02/18/21 00:23 Active Notify Provider [RC] PFP Care 02/18/21 00:23 Active Notify Provider [RC] PRN Care 02/18/21 00:23 Active Peripheral IV Care [RC] Q4HR Care 02/18/21 00:23 Active Vital Signs [RC] 09,15,21,03 Care 02/18/21 00:23 Active Regular Diet [DIET] Diet 02/18/21 Breakfast Active RAPID PLASMA REAGIN,RPR [CHEM] Timed Lab 02/18/21 05:10 Received Calcium Carbonate [Tums] Med 02/18/21 00:23 Active 1,000 mg PO Q2H PRN Lactated Ringers [Ringers, Lactated] 1,000 ml Med 02/18/21 00:30 Active IV ASDIRECTED Nalbuphine [Nubain] Med 02/18/21 00:23 Active 10 mg IVPUSH Q2H PRN Ondansetron [Zofran] Med 02/18/21 00:23 Active 4 mg IVPUSH Q4H PRN Oxytocin/Lactated Ringers [Pitocin in LR 10 Units/1,000 Med 02/18/21 03:30 Active ML] 10 unit in 1,000 ml IV TITRATE Sodium Chloride 0.9% [Saline Flush] Med 02/18/21 00:23 Active 10 ml FLUSH ASDIRECTED PRN Electronic Heart Tones Ext w TOCO [WOMSER] Oth 02/18/21 00:23 Ordered Routine Electronic Heart Tones Internal [WOMSER] Per Unit Oth 02/18/21 00:23 Ordered Routine Peripheral IV Insertion Adult [OM.PC] Routine Oth 02/18/21 00:23 Ordered Resuscitation Status Routine Resus Stat 02/18/21 00:23 Ordered Medication Orders Calcium Carbonate/Glycine (Calcium Carbonate 500 Mg Tab.Chew) 1,000 mg PO Q2H PRN PRN Reason: Indigestion Oxytocin/Lactated Ringer's (Pitocin In Lr 10 Units/1,000 Ml) 10 unit in 1,000 mls @ 12 mls/hr IV TITRATE JEVON; Protocol Last Titration: 02/18/21 07:00 Dose: 4 munits/min, 24 mls/hr Documented by: Admin: 02/18/21 06:25 Dose: 2 munits/min, 12 mls/hr Documented by: ERIN Lactated Ringer's (Ringers, Lactated) 1,000 mls @ 100 mls/hr IV ASDIRECTED JEVON Last Admin: 02/18/21 06:00 Dose: 100 mls/hr Documented by: ERIN Nalbuphine HCl (Nalbuphine 10 Mg/1 Ml Vial) 10 mg IVPUSH Q2H PRN PRN Reason: Pain Ondansetron HCl (Ondansetron 4 Mg/2 Ml Sdv) 4 mg IVPUSH Q4H PRN PRN Reason: Nausea/Vomiting Sodium Chloride (Sodium Chloride 0.9% 10 Ml Syringe) 10 ml FLUSH ASDIRECTED PRN PRN Reason: Keep Vein Open Assessment/Plan Comment:: Shakira Em is a GBS - A- with negative antibody screen 30 year old x 2 female at 40-1 weeks gestation age (DIONI 02/17/21) by 11 week US and LMP who presents today for induction of labor. She denies regular contraction, vaginal bleeding or leaking of fluid. movement has been good. 1. Induction of labor with Pitocin - Augmentation of labor with AROM and Pitocin as indicated 2. GBS - 3. A- with negative antibody screen; significant other is A-, RhoGAM not indicated 4. Rubella immune 5. Continuous monitoring 6. Activity as tolerated 7. Small amounts of regular diet 8. Pain management as patient desires 9. Plans to breastfeed 10. Anticipate vaginal delivery unless otherwise indicated
[2021-02-18] MEDS ORDERED: Bupivacaine/fentaNYL/NS 100 ML Bag EPIDUR PRN (10:43)
[2021-02-18] MEDS ORDERED: fentaNYL 100 MCG/2 ML SDV EPIDUR PRN (10:43)
[2021-02-18] MEDS ORDERED: ePHEDrine 50 MG/ML SDV IVPUSH PRN (10:43)
[2021-02-18] MEDS ORDERED: diphenhydrAMINE 50 MG/ML SDV IVPUSH PRN (10:43)
--- NOTE | 2021-02-18 10:59 | PCM.PREANE ---
Preanesthetic Assessment - Procedure Proposed Procedure: dami - Anesthesia/Transfusion/Family Hx Anesthesia History: Prior Anesthesia Without Reaction Family History of Anesthesia Reaction: No Transfusion History: No Prior Transfusion(s) - Review of Systems General: No Symptoms Pulmonary: No Symptoms Cardiovascular: Palpitations (when i contract-) Gastrointestinal: No Symptoms Neurological: No Symptoms Other: Reports: Depression, Anxiety - Physical Assessment Vital Signs: Last Vital Signs Temp 98.3 F 02/18/21 05:53 Pulse 90 02/18/21 06:43 Resp 15 02/18/21 05:53 BP 109/67 02/18/21 06:43 Pulse Ox 98 02/18/21 05:53 Height: 5 ft 3 in Weight: 78.018 kg ASA Class: 2 Mental Status: Alert & Oriented x3 Airway Class: Mallampati = 1 Dentition: Reports: Normal Dentition Thyro-Mental Finger Breadths: 3 Mouth Opening Finger Breadths: 3 ROM/Head Extension: Full Lungs: Clear to Auscultation, Normal Respiratory Effort Cardiovascular: Regular Rate, Regular Rhythm - Lab Values: Laboratory Last Values WBC 6.61 K/mm3 (3.98-10.04) 02/18/21 05:10 RBC 3.87 M/mm3 (3.98-5.22) L 02/18/21 05:10 Hgb 12.5 gm/dl (11.2-15.7) 02/18/21 05:10 Hct 38.2 % (34.1-44.9) 02/18/21 05:10 MCV 98.7 fl (79.4-94.8) H 02/18/21 05:10 MCH 32.3 pg (25.6-32.2) H 02/18/21 05:10 MCHC 32.7 g/dl (32.2-35.5) 02/18/21 05:10 RDW Std Deviation 48.2 fL (36.4-46.3) H 02/18/21 05:10 Plt Count 187 K/mm3 (182-369) 02/18/21 05:10 MPV 9.6 fl (9.4-12.3) 02/18/21 05:10 Neut % (Auto) 46.3 % (34.0-71.1) 02/18/21 05:10 Lymph % (Auto) 38.7 % (19.3-51.7) 02/18/21 05:10 [place] % (Auto) 12.9 % (4.7-12.5) H 02/18/21 05:10 Eos % (Auto) 1.4 (0.7-5.8) 02/18/21 05:10 Baso % (Auto) 0.2 % (0.1-1.2) 02/18/21 05:10 Neut # (Auto) 3.07 K/mm3 (1.56-6.13) 02/18/21 05:10 Lymph # (Auto) 2.56 K/mm3 (1.18-3.74) 02/18/21 05:10 [place] # (Auto) 0.85 K/mm3 (0.24-0.36) H 02/18/21 05:10 Eos # (Auto) 0.09 K/mm3 (0.04-0.36) 02/18/21 05:10 Baso # (Auto) 0.01 K/mm3 (0.01-0.08) 02/18/21 05:10 Hepatitis C Antibody Negative (NEGATIVE) 02/18/21 05:10 SARS-CoV-2 RNA (MARLI) Negative (NEGATIVE) 02/18/21 05:00 - Allergies Allergies/Adverse Reactions: Allergies Allergy/AdvReac Type Severity Reaction Status Date / Time No Known Allergies Allergy Verified 08/09/18 08:31 - Blood Blood Available: No - Acknowledgements Anesthesia Type Planned: Epidural Pt an Appropriate Candidate for the Planned Anesthesia: Yes Alternatives and Risks of Anesthesia Discussed w Pt/Guardian: Yes Pt/Guardian Understands and Agrees with Anesthesia Plan: Yes PreAnesthesia Questionnaire HEENT History: Reports: Other (See Below) Other HEENT History: wears glasses and contacts Cardiovascular History: Reports: None Respiratory History: Reports: Other (See Below) Other Respiratory History: 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 plus years Gastrointestinal History: Reports: GERD, Hemorrhoids Other Gastrointestinal History: prior hx of constipation, none presently Genitourinary History: Reports: UTI, Recurrent, Other (See Below) Other Genitourinary History: No UTIs with this , hx freq uti's with prior pregnancies 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 Psychiatric History: Reports: Anxiety, Depression Other Psychiatric History: Pt expresses having severe anxiety, as well as some increased depression with this , as unable to be on antidepressant or antianxiety meds during . Denies any SI, denies any thoughts of self- harm or harm to others. Endocrine/Metabolic History: Reports: None Hematologic History: Reports: Anemia, Other (See Below) Other Hematologic History: on iron supplements Immunologic History: Reports: None Oncologic (Cancer) History: Reports: None Dermatologic History: Reports: None - Infectious Disease History Infectious Disease History: Reports: None - Past Surgical History HEENT Surgical History: Reports: Oral Surgery, Tonsillectomy Cardiovascular Surgical History: Reports: None Respiratory Surgical History: Reports: None GI Surgical History: Reports: None Female Surgical History: Reports: None Endocrine Surgical History: Reports: None Musculoskeletal Surgical History: Reports: Other (See Below) Other Musculoskeletal Surgeries/Procedures:: 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 Lower t spine through l/s area. - SUBSTANCE USE Tobacco Use Status *Q: Never Tobacco User Tobacco Use Within Last Twelve Months: No Second Hand Smoke Exposure: No Days Per Week of Alcohol Use: 0 Recreational Drug Use History: No - HOME MEDS Home Medications: Home Meds No122/Iron/Folic Acid [ Multi Tablet] 1 each PO DAILY 08/09/18 [History] Acetaminophen [Tylenol] 650 mg PO Q4H PRN tablet 08/11/18 [Rx] Ascorbic Acid [Vitamin C] 1,000 mg PO DAILY 02/17/21 [History] Calcium Carbonate [Tums] 500 mg PO Q2HR PRN 02/17/21 [History] Cholecalciferol (Vitamin D3) [Vitamin D3] 1,000 unit PO DAILY 02/17/21 [History] Omeprazole Magnesium [Prilosec Otc] 20 mg PO DAILY 02/17/21 [History] - CURRENT (IN HOUSE) MEDS Current Meds: Current Medications Calcium Carbonate/Glycine (Calcium Carbonate 500 Mg Tab.Chew) 1,000 mg PO Q2H PRN PRN Reason: Indigestion Diphenhydramine HCl (Diphenhydramine 50 Mg/Ml Sdv) 25 mg IVPUSH Q6H PRN PRN Reason: pruritis Ephedrine Sulfate (Ephedrine 50 Mg/Ml Sdv) 5 mg IVPUSH ASDIRECTED PRN PRN Reason: Hypotension Fentanyl (Fentanyl 100 Mcg/2 Ml Sdv) 100 mcg EPIDUR Q3H PRN PRN Reason: Pain Fentanyl/Bupivacaine HCl (Bupivacaine/Fentanyl/Ns 100 Ml Bag) 100 ml EPIDUR ASDIRECTED PRN PRN Reason: Pain Oxytocin/Lactated Ringer's (Pitocin In Lr 10 Units/1,000 Ml) 10 unit in 1,000 mls @ 12 mls/hr IV TITRATE JEVON; Protocol Last Titration: 02/18/21 07:00 Dose: 4 munits/min, 24 mls/hr Documented by: Lactated Ringer's (Ringers, Lactated) 1,000 mls @ 100 mls/hr IV ASDIRECTED JEVON Last Admin: 02/18/21 06:00 Dose: 100 mls/hr Documented by: Nalbuphine HCl (Nalbuphine 10 Mg/1 Ml Vial) 10 mg IVPUSH Q2H PRN PRN Reason: Pain Ondansetron HCl (Ondansetron 4 Mg/2 Ml Sdv) 4 mg IVPUSH Q4H PRN PRN Reason: Nausea/Vomiting Sodium Chloride (Sodium Chloride 0.9% 10 Ml Syringe) 10 ml FLUSH ASDIRECTED PRN PRN Reason: Keep Vein Open
--- NOTE | 2021-02-18 16:37 | PCM.DEL ---
L & D Note - General Info Date of Service: 02/18/21 Mother's Due Date: 02/17/21 - Delivery Note Labor: Augmented by ARM, Induced by Oxytocin Delivery Outcome: Livebirth Delivery Method: Spontaneous Vaginal Delivery-Single Delivery Mode: Spontaneous Presentation: OA Nuchal Cord: Present, Reduced (Over body) Anesthesia Type: Epidural Amniotic Fluid Description: Clear Episiotomy Type: None Laceration: 1st Degree Suture type: Other (Monocryl) Suture size: 3-0 Placenta: Intact, Spontaneous Cord: 3 Vessels Estimated Blood Loss: 500 Resuscitation Needed: No [place]: Bulb Syringe, Stimulated, Warmed Provider: Malika Null Score 1 min: 8 Score 5 min: 9 Second Stage Interventions: Reports: Encouragement Given Delivery Comments (Free Text/Narrative):: Stage I: Shakira Em is a GBS - A- with negative antibody screen 30 year old x 2 female at 40-1 weeks gestation age (DIONI 02/17/21) by 11 week US and LMP who presents today for induction of labor. She denies regular contraction, vaginal bleeding or leaking of fluid. movement has been good. Induction was started with Pitocin; AROM was performed at approximately 1245 with clear fluid; mom and baby tolerated the procedure well. The patient quickly progressed to complete began pushing. Stage II: of a live female infant weighing 3330 g (7 lbs 5.5 ounce) with Apgars of 8/9 in the OA position. Tight nuchal cord present that was delivered over the infants shoulder. Noted posterior hand that spontaneously reduced. Time of delivery was 1539 on 02/18/21. The infant was placed on the mothers abdomen and stimulated, warmed and dried. Cord was clamped and cut by the infant's father following approximately 2 minutes of delayed cord clamping. Stage III: Intact placenta was delivered spontaneously. Inspection demonstrated an intact placenta with three vessel cord. The vaginal mucosa was inspected and noted 1st degree laceration in the midline. The area was repaired with 3-0 Monocryl. Further inspection demonstrated no other lacerations. EBL 500 mL. Fundus was firm. and mother stable to recovery. - General Info Date of Service: 02/18/21 - Patient Data Vitals - Most Recent: Last Vital Signs Temp 98.3 F 02/18/21 05:53 Pulse 90 02/18/21 06:43 Resp 15 02/18/21 05:53 BP 109/67 02/18/21 06:43 Pulse Ox 98 02/18/21 05:53 Weight - Most Recent: 172 lb I&O - Last 24 Hours: Intake & Output 02/18/21 02/18/21 02/18/21 06:59 14:59 22:59 Intake Total 120 320 Balance 120 320 Lab Results Last 24 Hours: Laboratory Results - last 24 hr 02/18/21 02/18/21 02/18/21 Range/Units 05:00 05:10 05:10 WBC 6.61 (3.98-10.04) K/mm3 RBC 3.87 L (3.98-5.22) M/mm3 Hgb 12.5 (11.2-15.7) gm/dl Hct 38.2 (34.1-44.9) % MCV 98.7 H (79.4-94.8) fl MCH 32.3 H (25.6-32.2) pg MCHC 32.7 (32.2-35.5) g/dl RDW Std Deviation 48.2 H (36.4-46.3) fL Plt Count 187 (182-369) K/mm3 MPV 9.6 (9.4-12.3) fl Neut % (Auto) 46.3 (34.0-71.1) % Lymph % (Auto) 38.7 (19.3-51.7) % [place] % (Auto) 12.9 H (4.7-12.5) % Eos % (Auto) 1.4 (0.7-5.8) Baso % (Auto) 0.2 (0.1-1.2) % Neut # (Auto) 3.07 (1.56-6.13) K/mm3 Lymph # (Auto) 2.56 (1.18-3.74) K/mm3 [place] # (Auto) 0.85 H (0.24-0.36) K/mm3 Eos # (Auto) 0.09 (0.04-0.36) K/mm3 Baso # (Auto) 0.01 (0.01-0.08) K/mm3 Hepatitis C Antibody Negative (NEGATIVE) SARS-CoV-2 RNA (MARLI) Negative (NEGATIVE) Med Orders - Current: Current Medications Calcium Carbonate/Glycine (Calcium Carbonate 500 Mg Tab.Chew) 1,000 mg PO Q2H PRN PRN Reason: Indigestion Diphenhydramine HCl (Diphenhydramine 50 Mg/Ml Sdv) 25 mg IVPUSH Q6H PRN PRN Reason: pruritis Ephedrine Sulfate (Ephedrine 50 Mg/Ml Sdv) 5 mg IVPUSH ASDIRECTED PRN PRN Reason: Hypotension Fentanyl (Fentanyl 100 Mcg/2 Ml Sdv) 100 mcg EPIDUR Q3H PRN PRN Reason: Pain Last Admin: 02/18/21 11:12 Dose: 100 mcg Documented by: Fentanyl/Bupivacaine HCl (Bupivacaine/Fentanyl/Ns 100 Ml Bag) 100 ml EPIDUR ASDIRECTED PRN PRN Reason: Pain Last Admin: 02/18/21 11:12 Dose: 100 ml Documented by: Oxytocin/Lactated Ringer's (Pitocin In Lr 10 Units/1,000 Ml) 10 unit in 1,000 mls @ 12 mls/hr IV TITRATE JEVON; Protocol Last Titration: 02/18/21 07:00 Dose: 4 munits/min, 24 mls/hr Documented by: Lactated Ringer's (Ringers, Lactated) 1,000 mls @ 100 mls/hr IV ASDIRECTED JEVON Last Admin: 02/18/21 11:24 Dose: 100 mls/hr Documented by: Nalbuphine HCl (Nalbuphine 10 Mg/1 Ml Vial) 10 mg IVPUSH Q2H PRN PRN Reason: Pain Ondansetron HCl (Ondansetron 4 Mg/2 Ml Sdv) 4 mg IVPUSH Q4H PRN PRN Reason: Nausea/Vomiting Sodium Chloride (Sodium Chloride 0.9% 10 Ml Syringe) 10 ml FLUSH ASDIRECTED PRN PRN Reason: Keep Vein Open - Problem List & Annotations (1) 40 weeks gestation of SNOMED Code(s): 97096034 Code(s): Z3A.40 - 40 WEEKS GESTATION OF Status: Acute Current Visit: Yes (2) Rh negative status during SNOMED Code(s): 904831145 Code(s): O09.899 - SUPERVISION OF OTHER HIGH RISK PREGNANCIES, UNSP TRIMESTER; Z67.91 - UNSPECIFIED BLOOD TYPE, RH NEGATIVE Status: Acute Current Visit: No (3) Anxiety and depression SNOMED Code(s): 303964529 Code(s): F41.9 - ANXIETY DISORDER, UNSPECIFIED; F32.9 - MAJOR DEPRESSIVE DISORDER, SINGLE EPISODE, UNSPECIFIED Status: Acute Current Visit: Yes (4) First degree perineal laceration SNOMED Code(s): 11948929 Code(s): O70.0 - FIRST DEGREE PERINEAL LACERATION DURING DELIVERY Status: Acute Current Visit: Yes (5) Nuchal cord SNOMED Code(s): 155609397 Code(s): MFW2226 - Status: Acute Current Visit: Yes (6) (spontaneous vaginal delivery) SNOMED Code(s): 279707556 Code(s): O80 - ENCOUNTER FOR FULL-TERM UNCOMPLICATED DELIVERY Status: Acute Current Visit: Yes - Problem List Review Problem List Initiated/Reviewed/Updated: Yes - Assessment Assessment:: of a live female infant weighing 3330 g (7 lbs 5.5 ounces) on 02/18/21 at 1539 with APGARs of 8/9 to a GBS - A- with negative antibody screen 30 year old x 2 female at 40-1 weeks gestation age (DIONI 02/17/21) who underwent IOL with Pitocin and AROM. - Plan Plan:: 1. PPD#0 of a live female 2. GBS - 3. A- with negative antibody screen; significant other is A-, RhoGAM not indicated 4. Rubella immune 5. care per unit routine 6. Activity as tolerated 7. Regular diet 9. Plans to breastfeed 10. Anticipate discharge in 24-48 hours pending machine staker's recommendation
[2021-02-18] MEDS ORDERED: Docusate Sodium 100 MG Cap PO PRN (17:12)
[2021-02-18] MEDS ORDERED: Benzocaine/Menthol 20%-0.5% Spray 56 GM Canister TOP PRN (17:12)
[2021-02-18] MEDS: Witch Hazel Medicated Pads 40/Jar TOP PRN (17:30)
[2021-02-18] MEDS: Ibuprofen 600 MG Tab PO PRN (19:50)
[2021-02-18] MEDS: Acetaminophen 325 MG Tab PO PRN (21:40)
[2021-02-19] MEDS: Witch Hazel Medicated Pads 40/Jar TOP PRN (00:14)
[2021-02-19] MEDS: Ibuprofen 600 MG Tab PO PRN ×4 (00:14→16:20)
[2021-02-19] MEDS: Acetaminophen 325 MG Tab PO PRN ×3 (02:45→12:32)
--- NOTE | 2021-02-19 08:14 | PCM48HPAN ---
Post Anesthesia Note - EVALUATION WITHIN 48HRS OF ANESTHETIC Vital Signs in Normal Range: Yes Patient Participated in Evaluation: Yes Respiratory Function Stable: Yes Airway Patent: Yes Cardiovascular Function Stable: Yes Hydration Status Stable: Yes Pain Control Satisfactory: Yes Nausea and Vomiting Control Satisfactory: Yes Mental Status Recovered: Yes Vital Signs: Last Vital Signs Temp 36.7 C 02/19/21 04:01 Pulse 73 02/19/21 04:01 Resp 14 02/19/21 04:01 BP 114/72 02/19/21 04:01 Pulse Ox 100 02/19/21 04:01
[2021-02-19] MEDS ORDERED: Prenatal Multivitamin with Calcium/Folic Acid/Iron Tab PO SCH (09:00)
--- NOTE | 2021-02-19 10:34 | PCM.DCSUM1 ---
Discharge Summary - Hospital Course Free Text/Narrative:: Shakira Em is a GBS - A- with negative antibody screen 30 year old x 2 female at 40-1 weeks gestation age (DIONI 02/17/21) by 11 week US and LMP who presented for induction of labor. Induction was started with Pitocin; AROM was performed at approximately 1245 with clear fluid; mom and baby tolerated the procedure well. The patient quickly progressed to complete began pushing. of a live female weighing 3330 g (7 lbs 5.5 ounce) with Apgars of 8/9 in the OA position. Time of delivery was 1539 on 02/18/21. Placenta was spontaneous, intact with a three vessel cord. EBL 500 mL. Mom and baby stable to recovery. Patient is A-; significant other is also A-. RhoGAM is not indicated at this time. She also is planning on starting her home med Escitalopram for her anxiety and depression . HPI Initial Comments: Patient is doing well today. She has been , which has went well. She reports that she has been ambulating and urinating without issue. Diagnosis: Stroke: No - Discharge Data Discharge Date: 02/19/21 Discharge Disposition: Home, Self-Care 01 Condition: Good - Referral to Home Health Primary Care Physician: Zev Sinclair MD - Discharge Diagnosis/Problem(s) (1) 40 weeks gestation of SNOMED Code(s): 90044318 ICD Code: Z3A.40 - 40 WEEKS GESTATION OF Status: Acute Current Visit: Yes (2) Rh negative status during SNOMED Code(s): 324080423 ICD Code: O09.899 - SUPERVISION OF OTHER HIGH RISK PREGNANCIES, UNSP TRIMESTER; Z67.91 - UNSPECIFIED BLOOD TYPE, RH NEGATIVE Status: Acute Current Visit: No (3) Anxiety and depression SNOMED Code(s): 511079595 ICD Code: F41.9 - ANXIETY DISORDER, UNSPECIFIED; F32.9 - MAJOR DEPRESSIVE DISORDER, SINGLE EPISODE, UNSPECIFIED Status: Acute Current Visit: Yes (4) First degree perineal laceration SNOMED Code(s): 95467872 ICD Code: O70.0 - FIRST DEGREE PERINEAL LACERATION DURING DELIVERY Status: Acute Current Visit: Yes (5) Nuchal cord SNOMED Code(s): 248825667 ICD Code: [id number] - Status: Acute Current Visit: Yes (6) (spontaneous vaginal delivery) SNOMED Code(s): 261064944 ICD Code: O80 - ENCOUNTER FOR FULL-TERM UNCOMPLICATED DELIVERY Status: Acute Current Visit: Yes - Patient Summary/Data Hospital Course: Uneventful - Patient Instructions Diet: Usual Diet as Tolerated Activity: No Strenuous Activities Activity, Other: pelvic rest Driving: May Drive Today Notify Provider of: Fever, Increased Pain, Swelling and Redness, Drainage, Nausea and/or Vomiting - Discharge Plan *PRESCRIPTION DRUG MONITORING PROGRAM REVIEWED*: No *COPY OF PRESCRIPTION DRUG MONITORING REPORT IN PATIENT COLLIN: No Home Medications: Home Meds No122/Iron/Folic Acid [ Multi Tablet] 1 each PO DAILY 08/09/18 [History] Acetaminophen [Tylenol] 650 mg PO Q4H PRN tablet 08/11/18 [Rx] Ascorbic Acid [Vitamin C] 1,000 mg PO DAILY 02/17/21 [History] Calcium Carbonate [Tums] 500 mg PO Q2HR PRN 02/17/21 [History] Cholecalciferol (Vitamin D3) [Vitamin D3] 1,000 unit PO DAILY 02/17/21 [History] Omeprazole Magnesium [Prilosec Otc] 20 mg PO DAILY 02/17/21 [History] Patient Handouts: Depression, Breast Pumping Tips, and Self-Care, Care After Vaginal Delivery, Anxiety Referrals: Vidal Chua MD [Physician] - - Discharge Summary/Plan Comment DC Time >30 min.: No - Patient Data Vitals - Most Recent: Last Vital Signs Temp 98.1 F 02/19/21 07:49 Pulse 84 02/19/21 07:49 Resp 16 02/19/21 07:49 BP 123/82 02/19/21 07:49 Pulse Ox 99 02/19/21 07:49 Weight - Most Recent: 172 lb I&O - Last 24 hours: Intake & Output 02/18/21 02/19/21 02/19/21 22:59 06:59 14:59 Intake Total 4320 Output Total 809 Balance 3511 Lab Results - Last 24 hrs: Laboratory Results - last 24 hr 02/18/21 Range/Units 05:10 RPR Non-reactive (NONREACTIVE) Med Orders - Current: Current Medications Acetaminophen (Acetaminophen 325 Mg Tab) 650 mg PO Q4H PRN PRN Reason: mild pain or fever Last Admin: 02/19/21 07:57 Dose: 650 mg Documented by: Benzocaine/Menthol (Benzocaine/Menthol 20%-0.5% [place] 56 Gm Canister) 0 gm TOP ASDIRECTED PRN PRN Reason: Perineal Comfort Measure Last Admin: 02/18/21 17:30 Dose: 1 can Documented by: Docusate Sodium (Docusate Sodium 100 Mg Cap) 100 mg PO BID PRN PRN Reason: Constipation Last Admin: 02/18/21 19:50 Dose: 100 mg Documented by: Ibuprofen (Ibuprofen 600 Mg Tab) 600 mg PO Q4H PRN PRN Reason: Mild pain or fever Last Admin: 02/19/21 08:44 Dose: 600 mg Documented by: Prenat Multivit/[place]/Iron/Folic Ac ( Multivitamin With Calcium/Folic Acid/Iron Tab) 1 each PO DAILY JEVON Last Admin: 02/19/21 08:47 Dose: Not Given Documented by: Nona Mcfarland (Nona Mcfarland Medicated Pads 40/Jar) 1 pad TOP ASDIRECTED PRN PRN Reason: Perineal Comfort Measure Last Admin: 02/19/21 00:14 Dose: 1 tub Documented by: Discontinued Medications Bupivacaine HCl (Bupivacaine 0.25% 10 Ml Sdv) 10 ml .ROUTE .STK-MED ONE Stop: 02/18/21 00:01 Calcium Carbonate/Glycine (Calcium Carbonate 500 Mg Tab.Chew) 1,000 mg PO Q2H PRN PRN Reason: Indigestion Diphenhydramine HCl (Diphenhydramine 50 Mg/Ml Sdv) 25 mg IVPUSH Q6H PRN PRN Reason: pruritis Ephedrine Sulfate (Ephedrine 50 Mg/Ml Sdv) 5 mg IVPUSH ASDIRECTED PRN PRN Reason: Hypotension Fentanyl (Fentanyl 100 Mcg/2 Ml Sdv) 100 mcg EPIDUR Q3H PRN PRN Reason: Pain Last Admin: 02/18/21 11:12 Dose: 100 mcg Documented by: Fentanyl/Bupivacaine HCl (Bupivacaine/Fentanyl/Ns 100 Ml Bag) 100 ml EPIDUR ASDIRECTED PRN PRN Reason: Pain Last Admin: 02/18/21 11:12 Dose: 100 ml Documented by: Oxytocin/Lactated Ringer's (Pitocin In Lr 10 Units/1,000 Ml) 10 unit in 1,000 mls @ 12 mls/hr IV TITRATE JEVON; Protocol Last Admin: 02/18/21 17:31 Dose: 16 munits/min, 96 mls/hr Documented by: Lactated Ringer's (Ringers, Lactated) 1,000 mls @ 100 mls/hr IV ASDIRECTED JEVON Last Admin: 02/18/21 11:24 Dose: 100 mls/hr Documented by: Nalbuphine HCl (Nalbuphine 10 Mg/1 Ml Vial) 10 mg IVPUSH Q2H PRN PRN Reason: Pain Ondansetron HCl (Ondansetron 4 Mg/2 Ml Sdv) 4 mg IVPUSH Q4H PRN PRN Reason: Nausea/Vomiting Sodium Chloride (Sodium Chloride 0.9% 10 Ml Syringe) 10 ml FLUSH ASDIRECTED PRN PRN Reason: Keep Vein Open
[2021-02-19 17:34] VITALS: BP 118/75; PULSE 82
== END 2021-02-19 17:30 | disposition home or self-care (01) | DRG 560 ==
LOC: UNDOADMOB 00:37 → JD.OB 00:37 → OBSVTOIN 15:39 → JD.OB 15:39
PROVIDERS: ADMIT Obstetrics & Gynecology; ATTEND Obstetrics & Gynecology
PROC: 10E0XZZ Delivery of Products of Conception, External Approach (ICD-10-PCS; principal; 2021-02-18)
PROC: 10907ZC Drainage of Amniotic Fluid, Therapeutic from Products of Conception, Via Natural or Artificial Opening (ICD-10-PCS; 2021-02-18)
PROC: 00HU33Z Insertion of Infusion Device into Spinal Canal, Percutaneous Approach (ICD-10-PCS; 2021-02-18)
PROC: 3E0R3BZ Introduction of Anesthetic Agent into Spinal Canal, Percutaneous Approach (ICD-10-PCS; 2021-02-18)
PROC: 0HQ9XZZ Repair Perineum Skin, External Approach (ICD-10-PCS; 2021-02-18)
DX: O48.0 Post-term pregnancy (principal); Z3A.40 40 weeks gestation of pregnancy; Z37.0 Single live birth; Z20.822 Contact with and (suspected) exposure to COVID-19; Z67.91 Unspecified blood type, Rh negative; O99.344 Other mental disorders complicating childbirth; F41.8 Other specified anxiety disorders; O69.1XX0 Labor and delivery complicated by cord around neck, with compression, not applicable or unspecified
CPT/HCPCS: 01967; 36415; 51702; 59025; 59409; 85025; 86592; 86803; A9270-GY; J2590; J3010; J3490; J7120; U0002

== ENCOUNTER 2021-02-27 20:21 | Emergency (ER) | payer BC ==
[2021-02-27 20:55] VITALS: BP 123/86; PULSE 88
--- NOTE | 2021-02-27 21:36 | EDM.PDOC ---
ED HPI GENERAL MEDICAL PROBLEM - General Chief Complaint: Abdominal Pain Stated Complaint: ABDOMINAL PAIN Time Seen by Provider: 02/27/21 20:59 Source of Information: Reports: Patient History Limitations: Reports: No Limitations - History of Present Illness INITIAL COMMENTS - FREE TEXT/NARRATIVE: 30-year-old female presents the emergency department this evening with complaints of lower abdominal pain. Patient recently delivered 9 days ago. She states she was seen by Selina hampton, [employer] nurse practitioner at the clinic today. She states that labs, urinalysis and pelvic ultrasound were completed and Selina Nayak reported that no acute infection was seen. Urinalysis was questionable and was sent for culture however the patient was given a prescription for Augmentin to be started today. The patient states she did not start on the Augmentin as she is fearful due to breast-feeding. She states that pain is what she thinks primarily in her bladder more so on the right than the left. She is concerned at this time that she may be constipated. Of note patient did have a small laceration with vaginal delivery and she states that Selina Nayak did evaluate that today as well and reports that there was no signs or symptoms of infection. Patient denies any fever, chills, nausea, vomiting or diarrhea. She states she did have a bowel movement today however it was relativ kristine small and again she is concerned with being constipated. Left Lower Abdomen Pain Score (Numeric/FACES): 7 - Related Data Allergies Allergy/AdvReac Type Severity Reaction Status Date / Time No Known Allergies Allergy Verified 08/09/18 08:31 Home Meds: Home Meds No122/Iron/Folic Acid [ Multi Tablet] 1 each PO DAILY 08/09/18 [History] Acetaminophen [Tylenol] 650 mg PO Q4H PRN tablet 08/11/18 [Rx] Ascorbic Acid [Vitamin C] 1,000 mg PO DAILY 02/17/21 [History] Calcium Carbonate [Tums] 500 mg PO Q2HR PRN 02/17/21 [History] Cholecalciferol (Vitamin D3) [Vitamin D3] 1,000 unit PO DAILY 02/17/21 [History] Omeprazole Magnesium [Prilosec Otc] 20 mg PO DAILY 02/17/21 [History] Past Medical History HEENT History: Reports: Impaired Vision Other HEENT History: wears glasses and contacts Cardiovascular History: Reports: None Respiratory History: Reports: Other (See Below) Other Respiratory History: 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 plus years Gastrointestinal History: Reports: GERD, Hemorrhoids Other Gastrointestinal History: prior hx of constipation, none presently Genitourinary History: Reports: UTI, Recurrent, Other (See Below) Other Genitourinary History: No UTIs with this , hx freq uti's with prior pregnancies [employer] History: Reports: , Spontaneous Other [employer] History: colposcopy age 16, results normal Musculoskeletal History: Reports: Fracture Other Musculoskeletal History: Hx R wrist fx, hx scoliosis Neurological History: Reports: Migraines Other Neuro History: Hx migraine with aura, one recently, prior had been a long period of time without. Psychiatric History: Reports: Anxiety, Depression Other Psychiatric History: Pt expresses having severe anxiety, as well as some increased depression with this , as unable to be on antidepressant or antianxiety meds during . Denies any SI, denies any thoughts of self- harm or harm to others. 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 Lower t spine through l/s area. Social & Family History - Family History Family Medical History: No Pertinent Family History Cardiac: Reports: Hypertension - Tobacco Use Tobacco Use Status *Q: Never Tobacco User Second Hand Smoke Exposure: No - Caffeine Use Caffeine Use: Reports: Coffee, Soda, Tea Other Caffeine Use: every so often drinks a coke - Recreational Drug Use Recreational Drug Use: No - Living Situation & Occupation Living situation: Reports: , with Spouse, with Family (Daughter) Occupation: Unemployed ED ROS GENERAL - Review of Systems Review Of Systems: Comprehensive ROS is negative, except as noted in HPI. ED EXAM, GI/ABD - Physical Exam Exam: See Below Exam Limited By: No Limitations General Appearance: Alert, WD/WN, No Apparent Distress Ears: Normal External Exam, Hearing Grossly Normal Nose: Normal Inspection Throat/Mouth: Normal Inspection, Normal Lips, Normal Voice, No Airway Compromise Head: Atraumatic, Normocephalic Neck: Normal Inspection, Supple, Non-Tender, Full Range of Motion Respiratory/Chest: No Respiratory Distress, Lungs Clear, Normal Breath Sounds, No Accessory Muscle Use Cardiovascular: Normal Peripheral Pulses, Regular Rate, Rhythm GI/Abdominal Exam: Normal Bowel Sounds, Soft, No Distention, Tender (Suprapubic tenderness noted with palpation). No: Non-Tender (Female) Exam: Deferred Rectal (Female) Exam: Deferred Back Exam: Normal Inspection, Full Range of Motion Extremities: Normal Inspection, Normal Range of Motion, No Pedal Edema Neurological: Alert, Oriented, Normal Cognition Psychiatric: Normal Affect, Normal Mood Skin Exam: Warm, Dry, Intact, Normal Color, No Rash Lymphatic: No Adenopathy Course - Vital Signs Text/Narrative:: At this time I do not feel it is warranted to repeat urinalysis as one was completed today and sent for culture and patient was also given antibiotics to start. I did discuss this with the patient and she is agreeable. I also recommended that she start taking her Augmentin as it is safe while breast- feeding. She is requesting however to have an x-ray of her abdomen to check for constipation. She states that Selina Nayak offered her this today at the clinic as well but she declined it at that time. I also do not feel it warranted to recheck labs on this patient as she just had them completed today and they were unremarkable. I have ordered of flatplate of the abdomen. Last Recorded V/S: Last Vital Signs Temp 97.8 F 02/27/21 20:45 Pulse 88 02/27/21 20:45 Resp 12 02/27/21 20:45 BP 123/86 02/27/21 20:45 Pulse Ox 98 02/27/21 20:45 - Orders/Labs/Meds Orders: Active Orders 24 hr Category Date Time Status KUB [Abdomen 1V Flat] [CR] Stat Exams 02/27/21 21:29 Taken - Re-Assessments/Exams Free Text/Narrative Re-Assessment/Exam: 02/27/21 22:45 Nothing acute is appreciated on flatplate of the abdomen. Labs in the clinic completed today at 1313 reveal a WBC of 7.78, hemoglobin 14.6, hematocrit 45.1 Urinalysis reveals 3+ occult blood, 1+ leuk esterase, 30-40 RBCs, 5-10 WBCs, and 5-10 urine epithelial cells, per the patient's report she was started on Augmentin and the urine was sent for culture. At this time I do not feel any further testing is warranted as I had previously stated patient did have a full work-up for the same symptoms at the clinic today and did not taking her Augmentin as prescribed. I did discuss this with the patient and she is agreeable to this. She will be discharged to home with recommendations that she start taking her antibiotic as previously prescribed. I also did notify her that it may take 48 to 72 hours to notice the effects of the antibiotic. She has strict return precautions should she develop fever, chills, nausea or vomiting. Patient verbalizes understanding of this. Departure - Departure Time of Disposition: 22:49 Disposition: Home, Self-Care 01 Clinical Impression: Suprapubic pain - Discharge Information Referrals: PCP,None [Primary Care Provider] - Forms: ED Department Discharge Additional Instructions: You were seen in the emergency department today with complaints of lower abdominal pain. You reported to me that you had been seen earlier today in the clinic by Selina hampton, nurse practitioner. I was able to review your lab work and urinalysis and ultrasound results. You report you were started on Augmentin for urinary tract infection however you had not started taking this yet. X-ray was completed in the emergency department this evening and it did not show anything acute. You do not appear to be constipated. Your lower abdomen discomfort is likely due to a urinary tract infection. Recommend that you start taking the antibiotics that were prescribed earlier today by Selina hampton. Keep in mind that it sometimes takes 48 to 72 hours for antibiotics to take full effect and begin working. You may take Tylenol 650 mg every 4 hours for the discomfort. Should you develop fever, chills, nausea or vomiting, do not hesitate returning to the emergency department. Sepsis Event Note (ED) - Evaluation Sepsis Screening Result: No Definite Risk - Focused Exam Vital Signs: Vital Signs Temp Pulse Resp BP Pulse Ox 02/27/21 20:45 97.8 F 88 12 123/86 98 - My Orders Last 24 Hours: My Active Orders 02/27/21 21:29 KUB [Abdomen 1V Flat] [CR] Stat - Assessment/Plan Last 24 Hours: My Active Orders 02/27/21 21:29 KUB [Abdomen 1V Flat] [CR] Stat
--- NOTE | 2021-02-28 08:38 | CR ---
Abdomen: Upright view of the abdomen was obtained. Comparison: No prior abdominal imaging is available. Scoliosis is present within the spine. Calcifications are seen within the lateral left pelvis most likely due to phleboliths. Bowel gas pattern is normal. No free air is seen. Impression: 1. Findings as noted above. 2. Nothing acute is appreciated on upright abdominal x-ray. Diagnostic code #1
== END 2021-02-27 23:02 | disposition home or self-care (01) ==
LOC: JD.ED 20:21
DX: R10.32 Left lower quadrant pain (principal); K21.9 Gastro-esophageal reflux disease without esophagitis; M41.9 Scoliosis, unspecified; Z79.899 Other long term (current) drug therapy
CPT/HCPCS: 74018; 74018-26; 99283; 99284-25

== ENCOUNTER 2022-08-04 06:02 | Day surgery (SDC) | payer BC ==
[~2022-08-04 06:02] MED LIST changes: -Bupivacaine 0.25% 10 ML SDV ONE; +Lactated Ringers 1,000 ML IV SCH; +Lidocaine 1%/Sod Bicarbonate in NS 8.4% 1 ML Syringe IDERM PRN; +Sodium Chloride 0.9% 10 ML Syringe FLUSH PRN; +Sodium Chloride 0.9% 10 ML Syringe FLUSH SCH
[2022-08-04] MEDS ORDERED: Lidocaine 1% 10 ML MDV ONE (06:18)
[2022-08-04] MEDS ORDERED: Bupivacaine 0.25% 10 ML SDV ONE (06:18)
[2022-08-04] MEDS ORDERED: Propofol 200 MG/20 ML SDV ONE (06:42)
[2022-08-04] MEDS ORDERED: fentaNYL 100 MCG/2 ML SDV ONE (06:42)
[2022-08-04] MEDS ORDERED: Midazolam 1 MG/ML 2 ML SDV ONE (06:43)
[2022-08-04] MEDS ORDERED: Ondansetron 4 MG/2 ML SDV ONE (07:26)
[2022-08-04 08:37] VITALS: BP 107/83; PULSE 63
== END 2022-08-04 08:35 | disposition home or self-care (01) ==
LOC: JD.SDS 06:02
PROVIDERS: ATTEND Orthopaedic Surgery
DX: G56.11 Other lesions of median nerve, right upper limb (principal); F41.9 Anxiety disorder, unspecified; F32.A Depression, unspecified; K21.9 Gastro-esophageal reflux disease without esophagitis; Z79.899 Other long term (current) drug therapy; Z98.890 Other specified postprocedural states
CPT/HCPCS: 64721; 81025; J2250; J2405; J2704; J3010; J3490; J7120; 01810

== ENCOUNTER 2022-09-15 06:18 | Day surgery (SDC) | payer BC ==
[~2022-09-15 06:18] MED LIST changes: +Bupivacaine 0.25% 10 ML SDV ONE; +Lidocaine 1% 10 ML MDV ONE
[2022-09-15] MEDS ORDERED: Bupivacaine 0.25% 10 ML SDV ONE (06:38)
[2022-09-15] MEDS ORDERED: Ondansetron 4 MG/2 ML SDV ONE (06:43)
[2022-09-15] MEDS ORDERED: Propofol 200 MG/20 ML SDV ONE ×2 (06:44→07:21)
[2022-09-15] MEDS ORDERED: fentaNYL 100 MCG/2 ML SDV ONE (06:44)
[2022-09-15] MEDS ORDERED: Midazolam 1 MG/ML 2 ML SDV ONE (06:44)
[2022-09-15 08:31] VITALS: BP 128/78; PULSE 72
[2022-09-15] MEDS ORDERED: Acetaminophen/HYDROcodone 325-5 MG Tab PO ONE (09:30)
== END 2022-09-15 08:40 | disposition home or self-care (01) ==
LOC: JD.SDS 06:18
PROVIDERS: ATTEND Orthopaedic Surgery
DX: G56.12 Other lesions of median nerve, left upper limb (principal); J45.998 Other asthma; K21.9 Gastro-esophageal reflux disease without esophagitis; G43.909 Migraine, unspecified, not intractable, without status migrainosus; F41.9 Anxiety disorder, unspecified; F32.A Depression, unspecified; Z98.890 Other specified postprocedural states; Z79.899 Other long term (current) drug therapy
CPT/HCPCS: 64721; 81025; A9270; J2250; J2405; J2704; J3010; J3490; J7120; 01810